=== PATIENT | female | born 2000 | race Hispanic/Latino ===

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

== ENCOUNTER 2024-10-26 04:29 | Emergency (ER) | payer OTHER ==
[~2024-10-26] VITALS: Ht 157.5 cm; Wt 112.5 kg
[~2024-10-26 04:29] MED LIST: MACROBID 100 M100 MG PO; PANTOPRAZOLE SO40 MG PO; ZOFRAN ODT4 MG SL
[2024-10-26 04:41] VITALS: TEMP 98.5
[2024-10-26] MEDS: ONDANSETRON HCL INJ 2MG/ML 2ML 2 MG/ML VIAL IV STA (04:58)
[2024-10-26] MEDS: SODIUM CHLORIDE 0.9% 1000ML 1,000 ML IV STA (04:58)
[2024-10-26 04:59] LABS: BASOPHILS % 0.2 % (0.0-1.0); EOSINOPHILS % 1.0 % (0.0-6.0); LYMPHOCYTES % 20.9 % (18.0-39.1); MONOCYTES % 5.5 % (4.4-11.3); NEUTROPHILS % 72.1 % (38.7-80.0); RED CELL DISTRIBUTION WIDTH 12.4 % (11.7-14.4)
[2024-10-26] MEDS: LIDOCAINE VISC 2% SOLN 15 ML UDC PO STA (04:59)
[2024-10-26] MEDS: BELLADONNA ALK/PHENOBARBITAL 5 ML UDC PO ONE (04:59)
[2024-10-26] MEDS: MAGNESIUM/ALUMINUM/SIMETHICONE 30 ML UDC PO STA (04:59)
[2024-10-26 05:02] LABS: LEUKOCYTE ESTERASE ,URINE NEGATIVE (NEGATIVE); PROTEIN,URINE DIPSTICK TRACE (NEGATIVE); URINE UROBILINOGEN 0.2 mg/dL (0.2 - 1)
[2024-10-26 05:03] LABS: PREGNANCY TEST, URINE NEGATIVE (NEGATIVE)
[2024-10-26 05:11] LABS: WBC,URINE (MAN) 0-5 /HPF (0-5)
[2024-10-26 05:12] LABS: EPITHELIAL CELLS,URINE MODERATE /LPF
[2024-10-26 05:22] LABS: EST GLOMERULAR FILTRATION RATE 108.0 ML/MIN (>=60)
[2024-10-26] MEDS ORDERED: IOPAMIDOL 370 MG/ML 100 ML INFUS..BTL INJ ONE (05:34)
[2024-10-26 05:55] VITALS: PULSE 74; RESP 18
[2024-10-26] MEDS ORDERED: ONDANSETRON ODT4 MG PO (06:10)
[2024-10-26] MEDS ORDERED: PEPCID20 MG PO (06:10)
[2024-10-26 06:16] VITALS: BP 119/62; PULSE 74; RESP 18; O2SAT 98
== END 2024-10-26 06:18 | disposition home or self-care (01) ==
LOC: ER 04:36
DX: R10.13 Epigastric pain (principal); R01.1 Cardiac murmur, unspecified; K76.0 Fatty (change of) liver, not elsewhere classified
CPT/HCPCS: 36415; 74177; 80053; 81001; 81025; 83690; 85025; 99284; J2405; J7030; Q9967